=== PATIENT | female | born 1950 | race Caucasian/White ===

== ENCOUNTER → 2017-08-23 | Outpatient (CLI) | payer OTHER ==
[~2017-08-23] MED LIST: ALBU8.5H8 IH; ASPI-1181 PO; ATOR20TA65 PO; AUD IH; BACL10TA PO; FLUO40CA49 PO; GUAI1TBM19 PO; METO-408 PO; PANT40TA PO; THYROID ARMOUR PO; TRIA1CAP6 PO; VITA150T PO; [UNRECOGNIZED DRUG - CODE] PO
== END | disposition home or self-care (01) ==
LOC: RAH 08:33
PROVIDERS: ATTEND Internal Medicine
DX: R10.11 Right upper quadrant pain (principal)
CPT/HCPCS: 76705

== ENCOUNTER → 2018-09-12 | Outpatient (CLI) | payer OTHER | END | disposition home or self-care (01) | LOC: RAH 12:47 | PROVIDERS: ATTEND Internal Medicine Pulmonary Disease | DX: J32.9 Chronic sinusitis, unspecified (principal); J33.9 Nasal polyp, unspecified | CPT/HCPCS: 70486 ==

== ENCOUNTER → 2018-11-24 | Outpatient (CLI) | payer OTHER | END | disposition home or self-care (01) | LOC: RAH 13:08 | PROVIDERS: ATTEND Internal Medicine | DX: K59.00 Constipation, unspecified (principal) | CPT/HCPCS: 74018 ==

== ENCOUNTER → 2019-05-19 | Outpatient (CLI) | payer OTHER | END | disposition home or self-care (01) | LOC: RAH 09:43 | PROVIDERS: ATTEND Internal Medicine | DX: M47.816 Spondylosis without myelopathy or radiculopathy, lumbar region (principal); M48.061 Spinal stenosis, lumbar region without neurogenic claudication | CPT/HCPCS: 72100 ==

== ENCOUNTER → 2019-06-14 | Outpatient (CLI) | payer OTHER | END | disposition home or self-care (01) | LOC: RAH 11:14 | PROVIDERS: ATTEND Internal Medicine | DX: R10.9 Unspecified abdominal pain (principal); N39.0 Urinary tract infection, site not specified | CPT/HCPCS: 76770 ==

== ENCOUNTER → 2019-11-01 | Outpatient (CLI) | payer OTHER ==
[~2019-11-01] MED LIST changes: -ASPI-1181 PO; +ASPI-1443 PO
== END | disposition home or self-care (01) ==
LOC: RAH 13:21
PROVIDERS: ATTEND Internal Medicine
DX: Z12.31 Encounter for screening mammogram for malignant neoplasm of breast (principal); M47.812 Spondylosis without myelopathy or radiculopathy, cervical region; M25.78 Osteophyte, vertebrae; M75.82 Other shoulder lesions, left shoulder
CPT/HCPCS: 72040; 73030; 77067

== ENCOUNTER 2020-02-08 08:27 | Day surgery (SDC) | payer OTHER ==
[2020-01-31 15:30] LABS: BASOPHILS % (AUTO) 0.7 % (0.0-5.0); EOSINOPHILS % (AUTO) 1.9 % (0.0-8.0); HEMATOCRIT 40.5 % (36-48); LYMPHOCYTES % (AUTO) 38.1 % (21.0-51.0); MEAN CORPUSCULAR HEMOGLOBIN 31.5 pg (27.0-33.0); MEAN CORPUSCULAR HGB CONC 32.3 g/dL (32.0-36.0); MEAN CORPUSCULAR VOLUME 97.4 fL (79-99); MONOCYTES % (AUTO) 10.3 % (3.0-13.0); NEUTROPHILS % (AUTO) 48.7 % (40.0-77.0); PLATELET COUNT (AUTO) 245 K/uL (130-400); RED BLOOD CELL COUNT(AUTO) 4.16 MIL/uL (4.00-5.50); RED CELL DISTRIBUTION WIDTH 13.3 % (11.0-15.5); WHITE BLOOD COUNT (AUTO) 7.5 K/uL (4.8-10.8)
[2020-01-31 15:43] LABS: CREATININE 1.1 mg/dL (0.5-1.5); POTASSIUM 4.1 mmol/L (3.5-5.1)
[2020-02-07 13:32] VITALS: BP 139/75
[2020-02-08] VITALS (18 sets, daily range): BP systolic 106–135; BP diastolic 40–70
[~2020-02-08] VITALS: Ht 160 cm; Wt 103.4 kg
[~2020-02-08 08:27] MED LIST changes: -ALBU8.5H8 IH; +ASCO500T20 PO; -ASPI-1443 PO; -ATOR20TA65 PO; -AUD IH; -BACL10TA PO; +CALTRATE PO; +CBD OIL PO; -GUAI1TBM19 PO; +LANS30CA55 PO; -PANT40TA PO; +PRAV40TA3 PO
[2020-02-08] MEDS ORDERED: LACTATED RINGERS 1000ML 1,000 ML IV ONE (09:35)
[2020-02-08] MEDS: CLINDAMYCIN 600MG IN 0.9% SOD 50 ML IV SCH ×2 (09:50→11:30)
[2020-02-08] MEDS ORDERED: MIDAZOLAM HCL 1 MG/ML 2ML VIAL ONE (10:27)
[2020-02-08] MEDS ORDERED: LIDOCAINE PF 2% 5ML ABBOJECT ONE (10:27)
[2020-02-08] MEDS ORDERED: PROPOFOL 10 MG/ML 20ML VIAL IV ONE (10:27)
[2020-02-08] MEDS ORDERED: DEXAMETHASONE SOD PHOSPHATE 10MG/ML 1ML VIAL ONE (10:27)
[2020-02-08] MEDS ORDERED: SUCCINYLCHOLINE CHLORIDE 20 MG/ML 10 ML VIAL ONE (10:27)
[2020-02-08] MEDS ORDERED: GLYCOPYRROLATE 1 MG/5 ML SYRINGE ONE (10:27)
[2020-02-08] MEDS ORDERED: ROCURONIUM 10MG/1ML SYR 10 MG/ML ML ONE (10:28)
[2020-02-08] MEDS ORDERED: FENTANYL CITRATE PF 50 MCG/1 ML 2ML VIAL ONE ×2 (10:28→12:09)
[2020-02-08] MEDS ORDERED: ONDANSETRON HCL 4 MG/2 ML VIAL ONE (10:28)
[2020-02-08] MEDS ORDERED: NEOSTIGMINE 5MG/5ML SYR IV ONE (10:28)
[2020-02-08] MEDS ORDERED: EPHEDRINE SULFATE 50 MG/ML AMPULE ONE (12:04)
--- NOTE | 2020-02-08 15:15 | NUR ---
PATIENT DISCHARGED FROM FACILITY WHEELCHAIR BY NURSE (DARLENE HERNANDEZ RN) PATIENT ASSISTED INTO PRIVATE VEHICLE DRIVEN BY SPOUSE. DRESSING TO LEFT SHOULDER DRY/INTACT AND ARM IN SLING.
== END 2020-02-08 15:15 ==
LOC: DAH 08:27
PROVIDERS: ATTEND Orthopaedic Surgery
DX: M75.02 Adhesive capsulitis of left shoulder (principal); Z20.828 Contact with and (suspected) exposure to other viral communicable diseases; M94.262 Chondromalacia, left knee; M25.712 Osteophyte, left shoulder; M25.812 Other specified joint disorders, left shoulder; I10 Essential (primary) hypertension; K21.9 Gastro-esophageal reflux disease without esophagitis; E66.01 Morbid (severe) obesity due to excess calories; Z86.14 Personal history of Methicillin resistant Staphylococcus aureus infection; Z87.891 Personal history of nicotine dependence; Z79.899 Other long term (current) drug therapy; Z88.8 Allergy status to other drugs, medicaments and biological substances; Z68.41 Body mass index [BMI] 40.0-44.9, adult; Z72.89 Other problems related to lifestyle; Z90.89 Acquired absence of other organs; Z90.710 Acquired absence of both cervix and uterus; Z98.891 History of uterine scar from previous surgery; Z98.890 Other specified postprocedural states; Z90.3 Acquired absence of stomach [part of]; Z98.49 Cataract extraction status, unspecified eye
CPT/HCPCS: 29825; 29826; 36415; 64415; 76942; 80048; 85025; 93005; A4215; A4221; A4222; A4223; A4600; A4649 ×4; A4663; A4930; A6207; G0168; J0330; J1100; J2001; J2250; J2405; J2704; J2710; J3010 ×2; J3490 ×2; J7030; J7120; U0003

== ENCOUNTER 2022-02-04 06:53 | Day surgery (SDC) | payer MEDICARE ==
[2022-01-29 08:51] LABS: BASOPHILS % (AUTO) 0.9 % (0.0-5.0); EOSINOPHILS % (AUTO) 2.9 % (0.0-8.0); HEMATOCRIT 39.2 % (36-48); LYMPHOCYTES % (AUTO) 38.7 % (21.0-51.0); MEAN CORPUSCULAR HEMOGLOBIN 32.1 pg (27.0-33.0); MEAN CORPUSCULAR HGB CONC 33.7 g/dL (32.0-36.0); MEAN CORPUSCULAR VOLUME 95.4 fL (79-99); MONOCYTES % (AUTO) 10.6 % (3.0-13.0); NEUTROPHILS % (AUTO) 46.7 % (40.0-77.0); PLATELET COUNT (AUTO) 249 K/uL (130-400); RED BLOOD CELL COUNT(AUTO) 4.11 MIL/uL (4.00-5.50); RED CELL DISTRIBUTION WIDTH 12.5 % (11.0-15.5); WHITE BLOOD COUNT (AUTO) 6.5 K/uL (4.8-10.8)
[2022-01-29 08:54] LABS: APPEARANCE,URINE CLEAR (CLEAR); BILIRUBIN,URINE NEGATIVE (NEGATIVE); COLOR,URINE YELLOW (YELLOW); GLUCOSE, URINE (UA) NEGATIVE (NEGATIVE); KETONES,URINE NEGATIVE (NEGATIVE); LEUKOCYTE ESTERASE ,URINE 250 Leu/uL (NEGATIVE); NITRATE,URINE NEGATIVE (NEGATIVE); OCCULT BLOOD,URINE NEGATIVE (NEGATIVE); PROTEIN,URINE 10 mg/dL (NEGATIVE); UROBILINOGEN,URINE 0.2 mg/dL (0.2-1.0)
[2022-01-29 08:58] LABS: CREATININE 1.3 mg/dL (0.5-1.5); POTASSIUM 3.4 mmol/L (3.5-5.1)
[2022-01-29 09:01] LABS: INR 0.98 (0.85-1.15); PROTHROMBIN TIME 10.7 SEC (9.6-11.6)
[2022-01-29 09:02] LABS: PARTIAL THROMBOPLASTIN TIME 25.8 SEC (26.3-35.5)
[2022-01-29 09:03] LABS: BACTERIA,URINE RARE /HPF (None Seen); MUCUS,URINE RARE LPF (None Seen); SQUAMOUS EPITHELIAL CELL,UR FEW /HPF (0-2)
[2022-01-29 09:24] LABS: B-TYPE NATRIURETIC PEPTIDE 58 pg/mL (0-100)
[2022-02-03 11:47] VITALS: BP 145/65
[~2022-02-04] VITALS: Ht 157.5 cm; Wt 96.2 kg
[2022-02-04] VITALS (10 sets, daily range): BP systolic 109–135; BP diastolic 41–66
[~2022-02-04 06:53] MED LIST changes: +ACET-66 PO; -ASCO500T20 PO; +CALC1TAB2 PO; -CALTRATE PO; -CBD OIL PO; -LANS30CA55 PO; +LEVO112T7 PO; +LIOT25TA12 PO; +META-25 PO; +METO-391 PO; -METO-408 PO; +NITR0.4T50 SL; -PRAV40TA3 PO; +SEMA3TAB4 PO; -THYROID ARMOUR PO; -TRIA1CAP6 PO; +TRIA1CAP87 PO; +UBID1CAP56 PO; -[UNRECOGNIZED DRUG - CODE] PO
[2022-02-04] MEDS ORDERED: 0.9%NACL 1000ML 1,000 ML IV ONE (07:53)
[2022-02-04] MEDS ORDERED: MIDAZOLAM HCL 1 MG/ML 2ML VIAL ONE (08:11)
[2022-02-04] MEDS ORDERED: HEPARIN 10,000 UNIT/10ML (1,000 UNIT/ML) VIAL ONE (08:11)
[2022-02-04] MEDS ORDERED: IOHEXOL 350 MG/ML 100ML INFUS..BTL IV ONE (08:13)
[2022-02-04] MEDS ORDERED: AEC81 PO (08:16)
[2022-02-04] MEDS ORDERED: LIDOCAINE HCL-MPF 2% 10ML AMP IJ ONE (08:17)
[2022-02-04] MEDS ORDERED: IOHEXOL-350 50ML VIAL IV ONE (08:42)
== END 2022-02-04 13:35 | disposition home or self-care (01) ==
LOC: DAH 06:53
PROVIDERS: ATTEND Internal Medicine Cardiovascular Disease
DX: R94.39 Abnormal result of other cardiovascular function study (principal); I20.0 Unstable angina; I11.9 Hypertensive heart disease without heart failure; I25.2 Old myocardial infarction; J44.9 Chronic obstructive pulmonary disease, unspecified; K21.9 Gastro-esophageal reflux disease without esophagitis; E03.9 Hypothyroidism, unspecified; Z86.72 Personal history of thrombophlebitis; Z87.891 Personal history of nicotine dependence; Z90.710 Acquired absence of both cervix and uterus; Z90.49 Acquired absence of other specified parts of digestive tract; Z90.89 Acquired absence of other organs; Z98.84 Bariatric surgery status; Z98.890 Other specified postprocedural states; Z79.82 Long term (current) use of aspirin; Z79.01 Long term (current) use of anticoagulants; Z79.899 Other long term (current) drug therapy
CPT/HCPCS: 80048; 83880; 85025; 85610; 85730; 87077; 87088; 87186; 81001; 36415; 71045; 93005; 93458; C1894; C1760; J7030; J1644; J3490; Q9967 ×2; A4215; A4335; A4222; A4221; A4663; A4216; A4606; Q9965; A4223 ×3; A4554; J2250

== ENCOUNTER → 2022-03-16 | Outpatient (CLI) | payer MEDICARE ==
[~2022-03-16] MED LIST changes: +AEC81 PO
== END | disposition home or self-care (01) ==
LOC: RAH 09:48
PROVIDERS: ATTEND Internal Medicine
DX: K21.9 Gastro-esophageal reflux disease without esophagitis (principal); K44.9 Diaphragmatic hernia without obstruction or gangrene; Z98.84 Bariatric surgery status
CPT/HCPCS: 74240

== ENCOUNTER → 2022-05-26 | Outpatient (CLI) | payer OTHER ==
[2022-05-26 16:39] LABS: CREATININE 1.2 mg/dL (0.5-1.5); POTASSIUM 3.8 mmol/L (3.5-5.1)
== END | disposition home or self-care (01) ==
LOC: LAB 15:18
PROVIDERS: ATTEND Internal Medicine Cardiovascular Disease
DX: I10 Essential (primary) hypertension (principal)
CPT/HCPCS: 36415; 80048

== ENCOUNTER → 2022-06-18 | Outpatient (CLI) | payer OTHER | END | disposition home or self-care (01) | LOC: RAH 14:47 | PROVIDERS: ATTEND Internal Medicine | DX: Z12.31 Encounter for screening mammogram for malignant neoplasm of breast (principal) | CPT/HCPCS: 77067 ==

== ENCOUNTER → 2022-06-29 | Outpatient (CLI) | payer OTHER | END | disposition home or self-care (01) | LOC: RAH 14:48 | PROVIDERS: ATTEND Internal Medicine Pulmonary Disease | DX: J84.10 Pulmonary fibrosis, unspecified (principal); A31.0 Pulmonary mycobacterial infection; I25.10 Atherosclerotic heart disease of native coronary artery without angina pectoris | CPT/HCPCS: 71250 ==

== ENCOUNTER → 2022-07-23 | Outpatient (CLI) | payer OTHER | END | disposition home or self-care (01) | LOC: RAH 16:33 | PROVIDERS: ATTEND Internal Medicine | DX: K59.00 Constipation, unspecified (principal) | CPT/HCPCS: 74018 ==

== ENCOUNTER → 2023-05-10 | Outpatient (CLI) | payer OTHER | END | disposition home or self-care (01) | LOC: RAH 15:36 | PROVIDERS: ATTEND Internal Medicine | DX: J20.9 Acute bronchitis, unspecified (principal); J45.40 Moderate persistent asthma, uncomplicated | CPT/HCPCS: 71046 ==

== ENCOUNTER → 2023-07-09 | Outpatient (CLI) | payer OTHER | END | disposition home or self-care (01) | LOC: RAH 13:39 | PROVIDERS: ATTEND Internal Medicine | DX: Z12.31 Encounter for screening mammogram for malignant neoplasm of breast (principal) | CPT/HCPCS: 77067 ==

== ENCOUNTER → 2024-09-28 | Outpatient (CLI) | payer OTHER ==
[~2024-09-28] MED LIST changes: +META-117 PO; -META-25 PO
--- NOTE | 2024-09-28 12:27 | HMCIMG ---
MR BRAIN WO CON HISTORY: Chronic COMPARISON: None TECHNIQUE: MRI of the brain was performed utilizing multiple pulse sequences in axial, coronal and sagittal planes. Patient was not given contrast through intravenous route. FINDINGS: The ventricles and extraventricular CSF spaces are dilated consistent with cerebral atrophy. Nonspecific white matter changes are seen. There is no midline shift, mass effect or herniation. No subacute hemorrhage is seen. No MR evidence of acute infarct is seen in the diffusion weighted images. Cerebellar tonsils are in normal position. No evidence of mucoperiosteal thickening is seen of the visualized paranasal sinuses. No MR evidence of a mass lesion is seen in this noncontrast study. There are bilateral mastoid effusion. IMPRESSION: 1. No MR evidence of acute infarct is seen in the diffusion weighted images. Atrophy or white matter changes.
== END | disposition home or self-care (01) ==
LOC: RAH 11:09
PROVIDERS: ATTEND Internal Medicine
DX: G43.719 Chronic migraine without aura, intractable, without status migrainosus (principal); H74.8X3 Other specified disorders of middle ear and mastoid, bilateral; G93.89 Other specified disorders of brain
CPT/HCPCS: 70551